=== PATIENT | female | born 1955 | race African-American/Black ===

== ENCOUNTER 2020-09-15 07:24 | Day surgery (SDC) | payer MEDICAID, OTHER ==
[2020-09-15] VITALS (7 sets, daily range): BP systolic 161–173; BP diastolic 80–87
[~2020-09-15] VITALS: Ht 167.6 cm; Wt 81.6 kg
[~2020-09-15 07:24] MED LIST: LR 1000ml 1,000 ML IVLG SCH
--- NOTE | 2020-09-15 08:43 | Anethesia Preoperative Eval ---
Anesthesia Pre-op PMH/ROS General Date of Evaluation: Sep 15, 2020 Time of Evaluation: 08:39 Anesthesiologist: sonali ASA Score: ASA 3 Mallampati Score Class I : Soft palate, uvula, fauces, pillars visible Class II: Soft palate, uvula, fauces visible Class III: Soft palate, base of uvula visible Class IV: Only hard plate visible Mallampati Classification: Class II Surgeon: teri Diagnosis: gerd, polyps Surgical Procedure: egd/colonoscopy Anesthesia History: none Social History: current smoker Family History: no anesthesia problems Allergies: Coded Allergies: No Known Allergies (Unverified , 06/30/20) Medications: see eMAR Patient NPO?: Yes Past Medical History Cardiovascular: Reports: HTN, arrhythmia - bradycardia, other - hypercholesterolemia Pulmonary: Reports: asthma Gastrointestinal/Genitourinary: Reports: GERD, other - colon polyps, sbo Hematology/Immune: Reports: other - covid-19 not detected 09/13/2020, Musculoskeletal/Integumentary: Reports: other - back pain, joint pain PSxH Narrative: small bowel reconstruction Anesthesia Pre-op Phys. Exam Physician Exam Last Vital Signs Date Time Temp Pulse Resp B/P (MAP) Pulse Ox O2 Delivery O2 Flow Rate FiO2 09/15/20 08:07 Room Air 09/15/20 07:57 96.9 58 18 163/80 99 Constitutional: NAD Neurologic: CN 2-12 intact Cardiovascular: RRR Respiratory: CTA Gastrointestinal: S/NT/ND Airway Exam Mallampati Score: Class II MO: limited Neck: flexible TMD: 2fb ROM: limited Anesthesia Pre-op A/P Labs Microbiology Date/Time Source Procedure Growth Status 09/13/20 08:30 Nasopharynx Coronavirus COVID-19 PCR ([facility]) - Final Complete Studies Pre-op Studies: EKG - sinus bradycardia Risk Assessment & Plan Assessment: asa3 Plan: mac Status Change Before Surgery: No Pre-Antibiotics Drug: Doris Gallegos MD Sep 15, 2020 08:43
[2020-09-15] MEDS ORDERED: DiphenhydrAMINE 50mg/ml Inj IVP PRN (08:45)
[2020-09-15] MEDS ORDERED: Midazolam 2mg/2ml Inj IVP PRN (08:45)
[2020-09-15] MEDS ORDERED: Atropine Inj 1mg/10ml Syr IVP PRN (08:45)
[2020-09-15] MEDS ORDERED: fentaNYL 100 mcg/2 mL IV PRN (08:45)
[2020-09-15] MEDS ORDERED: Lidocaine 1% MPF 10mg/ml 5ml ONE (09:00)
[2020-09-15] MEDS ORDERED: Succinylcholine 20mg/ml 10ml vial ONE (09:00)
[2020-09-15] MEDS ORDERED: fentaNYL 100 mcg/2 mL IV ONE (09:00)
[2020-09-15] MEDS ORDERED: LR 1000ml ONE (09:00)
--- NOTE | 2020-09-15 09:17 | Pre-Procedure Note/Attestation ---
Pre-Procedure Note/Attestation Complete Prior to Procedure Planned Procedure: not applicable Procedure Narrative: esophagogastroduodenoscopy and colonoscopy Indications for Procedure Pre-Operative Diagnosis: gerd, screening colon Attestation I attest that I discussed the nature of the procedure; its benefits; risks and complications; and alternatives (and the risks and benefits of such al ternatives), prior to the procedure, with the patient (or the patient's legal business banking representative). I attest that, if there was a reasonable possibility of needing a blood transfusion, the patient (or the patient's legal business banking representative) was given the [facility] standardized written summary, pursuant to the [place] Blood Safety Act ([place] Health and Safety Code # 1645, as amended). I attest that I re-evaluated the patient just prior to the surgery and that there has been no change in the patient's H&P, except as documented below: Robi Lindo MD Sep 15, 2020 09:17
--- NOTE | 2020-09-15 09:56 | Immediate Post-Op Evaluation ---
Immediate Post-Op Evalulation Immediate Post-Op Evalulation Procedure: egd/colonoscopy w/bx Date of Evaluation: Sep 15, 2020 Time of Evaluation: 09:57 IV Fluids: 350ml lr Blood Products: none Estimated Blood Loss: negligible Blood Pressure Systolic: 169 Blood Pressure Diastolic: 92 Pulse Rate: 70 Respiratory Rate: 18 O2 Sat by Pulse Oximetry: 100 Temperature (Fahrenheit): 97.5 Pain Score (1-10): 0 Nausea: No Vomiting: No Complications none Patient Status: awake, reacts, patent Hydration Status: adequate Drug: Doris Gallegos MD Sep 15, 2020 09:56
--- NOTE | 2020-09-15 09:59 | 48 Hour Post Anesthesia Eval ---
Post Anesthesia Evaluation Procedure: egd/colonoscopy w/bx Date of Evaluation: Sep 15, 2020 Time of Evaluation: 09:59 Blood Pressure Systolic: 182 0: 89 Pulse Rate: 67 Respiratory Rate: 18 Temperature (Fahrenheit): 97.5 O2 Sat by Pulse Oximetry: 100 Airway: patent Nausea: No Vomiting: No Pain Intensity: 0 Hydration Status: adequate Cardiopulmonary Status: stable Mental Status/LOC: patient returned to baseline Post-Anesthesia Complications: none Follow-up care needed: N/A Doris Delcid MD Sep 15, 2020 09:59
--- NOTE | 2020-09-15 09:59 | Procedure Note ---
DATE OF PROCEDURE: 09/15/2020 SURGEON: Robi Lindo MD. PROCEDURE: Upper endoscopy with biopsy and colonoscope. ANESTHESIA: Per Dr. Lucero. INSTRUMENT: Olympus adult flexible upper endoscope and colonoscope. INDICATION: Screening colonoscopy evaluation and chronic GERD. REASON FOR PROCEDURE: The procedure, risks, benefits, and possible consequences, including hemorrhage, aspiration, perforation and infection, and alternative treatments, were explained to the patient/legal guardian by Dr. Robi Lindo and the patient/legal guardian understood and accepted these risks. PROCEDURE IN DETAIL: After informed consent was obtained and the patient was adequately sedated, Olympus upper endoscope was advanced from mouth into the second portion of the duodenum and retroflexion was performed in the stomach. The patient has a few erosions in the stomach and antrum, otherwise normal upper endoscopy examination. Random biopsy from antrum was obtained to rule out H. pylori infection. At this time, the upper endoscope was retrieved and the patient was turned over for colonoscopy. First, rectal exam performed which was positive for internal hemorrhoids. Then the scope was advanced from rectum into the mid transverse colon. Quality of prep was very poor. The patient had solid stool throughout the colon, so we could not finish this colonoscopy. Few diverticula was seen in the left colon. Retroflexion of rectum showed evidence of internal hemorrhoids. SUMMARY OF FINDINGS: 1. Antral erosions and gastritis status post biopsy. 2. Incomplete colonoscopy examination secondary to poor prep. 3. Diverticulosis of left colon. 4. Internal hemorrhoids. RECOMMENDATIONS: 1. Followup biopsy and treat accordingly. 2. The patient needs repeat colonoscopy with better prep. Robi Lindo M.D. DR: Dg JOB#: [id number] CC:
== END 2020-09-15 10:35 | disposition home or self-care (01) ==
LOC: GAS 07:24
DX: Z12.11 Encounter for screening for malignant neoplasm of colon (principal); K21.9 Gastro-esophageal reflux disease without esophagitis; K64.8 Other hemorrhoids; K57.90 Diverticulosis of intestine, part unspecified, without perforation or abscess without bleeding; K29.70 Gastritis, unspecified, without bleeding; I10 Essential (primary) hypertension; E78.00 Pure hypercholesterolemia, unspecified; R00.1 Bradycardia, unspecified; Z86.010 Personal history of colon polyps; K31.9 Disease of stomach and duodenum, unspecified
CPT/HCPCS: 43239; 45378; 93005; 94003; J0330; J3010; J7120; U0004; Z7512; 94150